=== PATIENT | male | born 1990 | race African-American/Black ===

== ENCOUNTER → 2017-01-01 | Outpatient (CLI) | payer BC ==
--- NOTE | 2017-01-01 16:41 | MR ---
EXAMINATION: MRI of the right knee HISTORY: Pain COMPARISON: Radiographs dated 12/27/2016 TECHNIQUE: Multiplanar and multisequence images obtained of the right knee without contrast. FINDINGS: The patellar and quadriceps tendons are intact. ACL and the PCL are intact. There is a loc ulated 2.7 x 0.8 cm fluid collection within the anterior joint space extending into Hoffa's fat pad. There is mildly increased signal within the red zone of the posterior horn of the medial meniscus w ithout a definite tear. There is however a low signal area just inferior to this which may represent a small component of extruded meniscus within the medial joint space along the tibial plateau. Late ral meniscus appears intact. The medial and lateral collateral ligament complexes are preserved. The articular surfaces are preserved. No joint effusion or significant Key's cyst. No suspicious bone marrow signal. IMPRESSION: 1. There is a 2.7 x 0.8 cm loculated cystic collection within the anterior joint space of the knee l ikely representing a ganglion cyst. 2. Possible extruded meniscus along the medial joint space adjacent to the tibial plateau versus spr ain of the medial joint capsule.
== END ==
LOC: MERGE 10:30 → MW.MRI 11:07
PROVIDERS: ATTEND Orthopaedic Surgery
DX: M25.561 Pain in right knee (principal); M25.861 Other specified joint disorders, right knee
CPT/HCPCS: 73721-26-RT; 73721-RT